=== PATIENT | female | born 1970 | race Caucasian/White ===

== ENCOUNTER → 2017-06-30 15:09 | Outpatient (REF) | payer OTHER, SELFPAY ==
[2017-06-30 18:38] LABS: Basophils % 0.6 % (0.1-2.0); Eosinophils # 0.2 K/mm3 (0.0-0.4); Eosinophils % 2.5 % (0.1-12.0); Hematocrit 41.7 % (37.0-47.0); Hemoglobin 12.6 g/dL (12.2-16.2); Lymphocytes # 2.2 K/mm3 (0.7-4.5); Lymphocytes % 35.4 K/mm3 (10-50); Mean Corpuscular HGB Conc 30.2 g/dL (31.8-35.4); Mean Corpuscular Hemoglobin 27.2 pg (27.0-31.2); Mean Corpuscular Volume 90.1 fl (81-99); Mean Platelet Volume 9.3 fl (7.4-10.4); Monocytes # 0.3 K/mm3 (0.1-1.0); Neutrophils # 3.6 K/mm3 (1.8-7.8); Neutrophils % 56.5 % (37.0-80.0); Platelet Count 180 K/mm3 (142-424); Red Blood Count 4.62 M/mm3 (4.20-5.40); Red Cell Distribution Width 13.6 % (11.5-17.5); White Blood Count 6.3 K/mm3 (4.8-10.8)
[2017-06-30 18:43] LABS: Alanine Aminotransferase 26 U/L (12-78); Albumin Level 3.9 gm/dL (3.4-5.0); Albumin/Globulin Ratio 1.3 (1.1-1.8); Anion Gap 13.1 mEq/L (5-15); Aspartate Amino Transferase 14 U/L (15-37); Bilirubin,Total 0.3 mg/dL (0.2-1.0); Blood Urea Nitrogen 11 mg/dL (7-18); Calcium 8.8 mg/dL (8.5-10.1); Carbon Dioxide 27 mmol/L (21.0-32.0); Chloride 105 mmol/L (98-107); Cholesterol 166 mg/dL (140-200); Creatinine,Serum 0.77 mg/dL (0.55-1.02); Estimated Glomerular Filt Rate 81 ml/min (>60); GFR (African American) 99 ML/MIN (>60); Glucose 86 mg/dL (74-106); HDL Cholesterol 43 mg/dL (29-89); LDL Cholesterol 104 mg/dL (0-130); Potassium 4.1 mmoL/L (3.5-5.1); Sodium 141 mmol/L (136-145); Total Protein,Serum 6.9 gm/dL (6.4-8.2); Triglycerides 94 mg/dL (30-200); VLDL Cholesterol 19 mg/dL (0-40)
[2017-06-30 18:44] LABS: Alkaline Phosphatase 81 U/L (46-116); Chol/HDL Ratio 3.9 (1-3.5); T4 (Thyroxine) 7.8 ug/dl (4.7-13.3); Thyroid Stimulating Hormone 1.24 uIU/ml (0.358-3.740)
[2017-07-03 11:59] LABS: Vitamin D 25 Hydroxy 13.6 ng/mL (30.0-100.0)
== END ==
LOC: LAB 15:09
PROVIDERS: Visit Provider Physician Assistant
DX: E03.9 Hypothyroidism, unspecified (principal)
CPT/HCPCS: 80053; 80061; 82652; 84436; 84443; 85025

== ENCOUNTER → 2017-11-27 15:40 | Outpatient (REF) | payer OTHER, SELFPAY ==
[2017-11-27 19:13] LABS: Basophils % 0.7 % (0.1-2.0); Eosinophils # 0.2 K/mm3 (0.0-0.4); Eosinophils % 2.7 % (0.1-12.0); Hematocrit 36.8 % (37.0-47.0); Hemoglobin 11.9 g/dL (12.2-16.2); Lymphocytes # 1.9 K/mm3 (0.7-4.5); Mean Corpuscular HGB Conc 32.5 g/dL (31.8-35.4); Mean Corpuscular Hemoglobin 28.9 pg (27.0-31.2); Mean Platelet Volume 7.8 fl (7.4-10.4); Monocytes # 0.3 K/mm3 (0.1-1.0); Monocytes % 5.7 % (1.7-9.3); Neutrophils # 3.5 K/mm3 (1.8-7.8); Neutrophils % 59.1 % (37.0-80.0); Platelet Count 196 K/mm3 (142-424); Red Blood Count 4.14 M/mm3 (4.20-5.40); Red Cell Distribution Width 14.9 % (11.5-17.5); White Blood Count 5.9 K/mm3 (4.8-10.8)
[2017-11-27 19:43] LABS: Alanine Aminotransferase 30 U/L (12-78); Albumin/Globulin Ratio 1.3 (1.1-1.8); Alkaline Phosphatase 73 U/L (46-116); Anion Gap 11.3 mEq/L (5-15); Aspartate Amino Transferase 21 U/L (15-37); Bilirubin,Total 0.4 mg/dL (0.2-1.0); Blood Urea Nitrogen 11 mg/dL (7-18); Calcium 9.1 mg/dL (8.5-10.1); Carbon Dioxide 27 mmol/L (21.0-32.0); Chloride 106 mmol/L (98-107); Estimated Glomerular Filt Rate 68 ml/min (>60); GFR (African American) 82 ML/MIN (>60); Glucose 89 mg/dL (74-106); Potassium 4.3 mmoL/L (3.5-5.1); Sodium 140 mmol/L (136-145); Thyroid Stimulating Hormone 0.64 uIU/ml (0.358-3.740)
[2017-11-29 18:05] LABS: Vitamin D 25 Hydroxy 47.3 ng/mL (30.0-100.0)
== END ==
LOC: LAB 15:40
PROVIDERS: Visit Provider Physician Assistant
DX: R10.13 Epigastric pain (principal); K92.1 Melena
CPT/HCPCS: 80053; 82652; 84443; 85025

== ENCOUNTER → 2018-07-10 13:30 | Outpatient (CLI) | payer OTHER, SELFPAY | PROVIDERS: Visit Provider Emergency Medicine | DX: R30.0 Dysuria (principal) | CPT/HCPCS: 87086; 87088; 87186 ==

== ENCOUNTER → 2018-10-20 14:11 | Outpatient (CLI) | payer OTHER, SELFPAY ==
[2018-10-22 09:21] LABS: Hep A Ab, IgM Negative (Negative); Hepatitis B Core Antibody IgM Negative (Negative); Hepatitis B Surface Antigen Negative (Negative)
[2018-10-22 19:11] LABS: Hepatitis C Antibody <0.1 s/co ratio (0.0-0.9)
== END ==
PROVIDERS: Visit Provider Physician Assistant
DX: Z20.5 Contact with and (suspected) exposure to viral hepatitis (principal)
CPT/HCPCS: 80074